=== PATIENT | male | born 1990 | race Caucasian/White ===

== ENCOUNTER 2021-04-14 15:51 | Emergency (ER) | payer OTHER ==
[~2021-04-14] VITALS: Ht 180.3 cm; Wt 77.1 kg
[2021-04-14] MEDS ORDERED: AUGMENTIN 875-1 EACH PO (17:45)
[2021-04-14] MEDS ORDERED: FLEXERIL PO (17:45)
[2021-04-14] MEDS ORDERED: IBUPROFEN 800800 M1 PO (17:45)
[2021-04-14 18:27] VITALS: BP 134/86
== END 2021-04-14 18:27 | disposition home or self-care (01) ==
LOC: M.ERS 15:51
DX: S16.1XXA Strain of muscle, fascia and tendon at neck level, initial encounter (principal); S00.83XA Contusion of other part of head, initial encounter; J32.1 Chronic frontal sinusitis; F17.210 Nicotine dependence, cigarettes, uncomplicated; Z98.890 Other specified postprocedural states; Z88.6 Allergy status to analgesic agent; Y04.2XXA Assault by strike against or bumped into by another person, initial encounter; Y93.89 Activity, other specified; Y92.89 Other specified places as the place of occurrence of the external cause; Y99.8 Other external cause status